=== PATIENT | female | born 1995 | race Caucasian/White ===

== ENCOUNTER 2019-08-31 01:35 | Emergency (ER) | payer OTHER ==
[~2019-08-31] VITALS: Ht 157.5 cm; Wt 52.2 kg
[2019-08-31 01:39] VITALS: BP 144/108
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
--- NOTE | 2019-08-31 01:53 | NUR ---
Patient discharged with v/s stable. Written and verbal after care instructions given and explained. Patient verbalized understanding. Ambulatory with steady gait. All questions addressed prior to discharge. Advised to follow up with PMD. PT DC IN CUSTODY TO [facility]. PT APPEARS TO BE IN NO DISTRESS. ALLOWED TIME TO ASK QUESTIONS. ALL QUESTIONS ANSWERED.
[2019-08-31 01:56] VITALS: BP 132/98
== END 2019-08-31 01:53 | disposition home or self-care (01) ==
LOC: MED 01:35
DX: Z02.89 Encounter for other administrative examinations (principal); Z88.5 Allergy status to narcotic agent; V89.2XXA Person injured in unspecified motor-vehicle accident, traffic, initial encounter; Y93.89 Activity, other specified; Y92.89 Other specified places as the place of occurrence of the external cause; Y99.8 Other external cause status
CPT/HCPCS: 99283